=== PATIENT | female | born 1950 | race Caucasian/White ===

== ENCOUNTER → 2016-06-02 | Outpatient (CLI) | payer MEDICARE, OTHER ==
[~2016-06-02] VITALS: Ht 162.6 cm; Wt 92.5 kg
[~2016-06-02] MED LIST: AMIT10TA PO; ATOR1TAB21 PO; BACL10TA2 PO; CENT1TAB PO; COUM2.5T11 PO; GLUC1CAP9 PO; IBUP-1114 PO; LEVO175T2 PO; LIDO5DIS36 TD; LIDOCAINE 2% INJ 100 MG/5 ML SDV (FOR ANES.) As Ordered ONE; LISI20TA PO; METO-207 PO; MOTR200T44 PO; NEXI40CA PO; NS 1,000 ML IV SCH; OXYC-299 PO; OYST1TAB5 PO; OYST500T76 PO; PERC5TAB6 PO; PROPOFOL 200 MG/20 ML VIAL As Ordered ONE; TRAM50TA2 PO; VITMTA PO; WARF-18 PO
--- NOTE | 2016-06-02 07:44 | ROOR ---
Patient Name: Jossy Winchester Procedure Date: 06/02/2016 7:29 AM Date of : 1950 Age: 65 Room: [facility] Gender: Female Note Status: Finalized Procedure: Colonoscopy Indications: Screening for colorectal malignant neoplasm Providers: Manpreet BERUMEN MD Referring MD: ANDREEA DORAN MD Requesting Provider: Medicines: Monitored Anesthesia Care Complications: No immediate complications. Procedure: Pre-Anesthesia Assessment: - The heart rate, respiratory rate, oxygen saturations, blood pressure, adequacy of pulmonary ventilation, and response to care were monitored throughout the procedure. The Colonoscope was introduced through the anus and advanced to the cecum, identified by appendiceal orifice and ileocecal valve. The colonoscopy was performed without difficulty. The patient tolerated the procedure well. The quality of the bowel preparation was good. Findings: The perianal and digital rectal examinations were normal. (Exam: Complete, Prep: Good or Excellent.) The colon appeared normal on direct and retroflexion views. Impression: - (Exam: Complete, Prep: Good or Excellent.) - The entire examined colon is normal on direct and retroflexion views. - No specimens collected. Recommendation: - Repeat colonoscopy in 10 years for screening purposes. Manpreet Berumen MD Manpreet BERUMEN MD 06/02/2016 7:43:58 AM This report has been signed electronically. Number of Addenda: 0 Note Initiated On: 06/02/2016 7:29 AM Estimated Blood Loss: Estimated blood loss: none.
[2016-06-02 08:10] VITALS: BP 152/81
== END ==
LOC: M SDC 06:39
PROVIDERS: ATTEND Internal Medicine Gastroenterology
DX: Z12.11 Encounter for screening for malignant neoplasm of colon (principal); I10 Essential (primary) hypertension; K21.9 Gastro-esophageal reflux disease without esophagitis; M19.90 Unspecified osteoarthritis, unspecified site; E34.0 Carcinoid syndrome; Z79.899 Other long term (current) drug therapy; Z91.048 Other nonmedicinal substance allergy status
CPT/HCPCS: 99156; G0121

== ENCOUNTER → 2016-09-28 | Outpatient (REF) | payer OTHER ==
[~2016-09-28] MED LIST changes: -LIDOCAINE 2% INJ 100 MG/5 ML SDV (FOR ANES.) As Ordered ONE; -NS 1,000 ML IV SCH; -PROPOFOL 200 MG/20 ML VIAL As Ordered ONE
[2016-09-28 14:18] LABS: INR 0.91
== END ==
LOC: M LABNEURO 13:21
PROVIDERS: ATTEND Physical Medicine & Rehabilitation
DX: M47.22 Other spondylosis with radiculopathy, cervical region (principal)

== ENCOUNTER → 2017-07-03 | Outpatient (REF) | payer OTHER, MEDICARE ==
[2017-07-03 18:47] LABS: BLOOD UREA NITROGEN 15 MG/DL (7-18)
[2017-07-03 18:47] LABS: CREATININE FOR GFR 0.61 MG/DL (0.55-1.30); GLOMERULAR FILTRATION RATE > 60.0 (>45)
== END ==
LOC: M LABDRAW1 17:30
DX: M47.22 Other spondylosis with radiculopathy, cervical region (principal)
CPT/HCPCS: 82565